=== PATIENT | female | born 1990 ===

== ENCOUNTER → 2020-05-17 | Emergency (ER) | payer SELFPAY ==
[~2020-05-17] VITALS: Ht 170.2 cm; Wt 88.6 kg
[~2020-05-17] MED LIST: ALDACTONE25 MG PO; BUSPAR10 MG PO; HYDROCODON-ACE1 EAC2 PO
[2020-05-17 17:13] VITALS: BP 131/78; Ht 170.2 cm; Wt 88.6 kg
[2020-05-17 18:01] LABS: APTT 26.6 SECONDS (22.8-39.4); INR 0.87 (0.85-1.17); PROTIME 11.8 SECONDS (11.6-15.0)
[2020-05-17 18:02] LABS: BASOPHILS 0.2 % (0-2); EOSINOPHILS 4.2 % (0-7); HEMATOCRIT 44.9 % (36.0-48.0); HEMOGLOBIN 15.7 g/dL (12-16); IMMATURE GRANULOCYTES 0.3 % (0-5); LYMPHOCYTES 22.7 % (15-50); MCH 33.1 pg (26.0-34.0); MCV 94.5 fL (80.0-100.0); MEAN PLATELET VOLUME 9.6 fL (7.4-10.4); MONOCYTES 7.5 % (2-11); NEUTROPHILS 65.1 % (40-80); PLATELET COUNT 263 10x3/uL (130-400); RBC 4.75 10x6/uL (4.00-5.40); RDW 13.3 % (11.5-14.5); WBC 11.3 10x3/uL (4.8-10.8)
[2020-05-17 18:17] LABS: CALC OSMOLALITY 278 mosm/kg (275-300); CALCIUM 9.6 mg/dL (8.5-10.1); CARBON DIOXIDE 23.6 mmol/L (21.0-32.0); CHLORIDE - SERUM 104 mmol/L (98-107); CREATININE - SERUM 0.9 mg/dL (0.6-1.3); GLUCOSE 117 mg/dL (74-106); POTASSIUM - SERUM 4.3 mmol/L (3.5-5.1); SODIUM 138 mmol/L (136-145); UREA NITROGEN 17 mg/dL (7-18); eGFR NON AFRICAN AMERICAN 77 mL/min (90-120)
[2020-05-17 18:32] LABS: ALBUMIN 3.5 g/dL (3.4-5.0); ALKALINE PHOSPHATASE 34 U/L (30-120); ALT (SGPT) 33 U/L (10-68); BILIRUBIN - TOTAL 0.26 mg/dL (0.2-1.3); CKMB 0.4 U/L (0.0-3.6); CREATINE KINASE 32 UL (21-215); PROTEIN - SERUM 6.8 g/dL (6.4-8.2); TROPONIN-I < 0.017 ng/mL (0.000-0.060)
[2020-05-17 20:09] LABS: BILIRUBIN NEGATIVE (NEGATIVE); GLUCOSE NEGATIVE (NEGATIVE); KETONE NEGATIVE (NEGATIVE); NITRITE NEGATIVE (NEGATIVE); SPECIFIC GRAVITY 1.015 (1.005-1.020); UROBILINOGEN NORMAL (NORMAL)
== END | disposition home or self-care (01) ==
LOC: D.ER 17:05
PROVIDERS: Family Medicine
DX: E26.89 Other hyperaldosteronism (principal); I95.9 Hypotension, unspecified; R00.0 Tachycardia, unspecified